=== PATIENT | female | born 1970 | race African-American/Black ===

== ENCOUNTER 2016-11-27 13:36 | Emergency (ER) | payer OTHER ==
[2016-11-27] MEDS ORDERED: SODIUM CHLORIDE 0.9% 1,000 ML ONE (17:31)
[2016-11-27] MEDS ORDERED: ONDANSETRON 4 MG VIAL ONE (17:31)
== END 2016-11-27 19:07 | disposition home or self-care (01) ==
LOC: ER 13:36
DX: R55 Syncope and collapse (principal); R11.0 Nausea
CPT/HCPCS: 36415; 71020; 80053; 81001; 82553; 82947; 83690; 84484; 85025; 93005; 96361; 96374; 99285; J2405